=== PATIENT | female | born 1930 | race Caucasian/White ===

== ENCOUNTER 2016-12-18 15:24 | Inpatient (IN) ==
[2016-12-18] MEDS ORDERED: Aspirin 81 MG TAB.CHEW PO ONE (15:37)
--- NOTE | 2016-12-18 15:42 | Emergency Department Note ---
Disposition Clinical Impression: Elevated troponin I level Chest pain Qualifiers: Chest pain type: unspecified Qualified Code(s): R07.9 - Chest pain, unspecified Disposition: Admitted As Inpatient Condition: Fair Referrals: Rodriguez Lawrence MD [Primary Care Provider] - Forms: ED Satisfaction Letter Time of Disposition: 17:24 Chest Pain HPI - General Chief Complaint: ED Chest Pain Stated Complaint: CP Vital Signs Reviewed: Yes Nursing Notes Reviewed: Yes - History of Present Illness HPI Narrative: Patient is an 86-year-old female who presents to [facility] ED with a chief complaint of substernal chest discomfort. Describes her pain as indigestion which started last night. States it came on and then went away. Then it came on again today. Denies any nausea, vomiting, fever or chills. No history of heart problems. Patient was sent over by her primary care physician Dr. Lawrence. EKG was handed to me by her son. Past medical history significant for type 2 diabetes, hypertension, hyperlipidemia. Patient states she has never had a stress test performed. Pt complaint: chest pain Onset (ago): hour(s) Duration: intermittent Onset: during rest Pain Location: substernal Severity: moderate Quality: aching Pain Radiation: none Improves with: nothing Worsens with: nothing Associated symptoms: Denies: nausea, vomiting, dyspnea - Related Data Home Medications Medication Instructions Recorded Confirmed Amlodipine [Norvasc] 5 mg PO DAILY 12/18/16 12/18/16 Gabapentin [Neurontin] 300 mg PO HS 12/18/16 12/18/16 Glimepiride [Amaryl] 4 mg PO DAILY 12/18/16 12/18/16 Insulin Glargine,Hum.rec.anlog 10 unit SQ HS 12/18/16 12/18/16 [Lantus Solostar] LORazepam [Ativan] 0.5 mg PO BID PRN 12/18/16 12/18/16 Lisinopril [Zestril] 20 mg PO DAILY 12/18/16 12/18/16 Loratadine [Claritin] 10 mg PO DAILY 12/18/16 12/18/16 Sertraline [Zoloft] 25 mg PO DAILY 12/18/16 12/18/16 SitaGLIPtin [Januvia] 100 mg PO DAILY 12/18/16 12/18/16 Allergies Allergy/AdvReac Type Severity Reaction Status Date / Time Sulfa (Sulfonamide Allergy Hives Verified 12/18/16 15:26 Antibiotics) All systems ED: reviewed and negative except as stated. Physical Exam - General Limitations: no limitations General appearance: alert, in no apparent distress - Head Head exam: atraumatic, normocephalic, normal inspection - Eye Eye exam: Present: normal appearance, PERRL, EOMI - ENT ENT exam: normal exam - Neck Neck exam: Present: normal inspection, full ROM, trachea midline - Chest Chest inspection: Present: normal inspection, symmetric chest wall rise - Respiratory Respiratory exam: Present: normal lung sounds bilaterally - Cardiovascular Cardiovascular exam: Present: normal rhythm, tachycardia, systolic murmur ( Prominent new blowing systolic murmur) - Abdominal Exam Abdominal exam: Present: soft, Non-Tender. Absent: tenderness, distention, guarding, rebound, rigidity - Extremities Exam Extremities exam: Present: normal inspection, full ROM. Absent: tenderness, pedal edema - Back Exam Back exam: Present: normal inspection, full ROM. Absent: tenderness - Neurological Exam Neurological exam: Present: alert, oriented X3 - Psychiatric Psychiatric exam: Present: normal affect, normal mood - Skin Skin exam: Present: warm, dry, intact, normal color Course Course Narrative: Patient seen and examined. Chest pain described as indigestion. Concerned that on physical exam, patient has a new loud systolic murmur. Cardiac workup initiated. The EKG from the primary care's office seems to show possible ST segment elevation in lead V2. We will go ahead and fax this to the maintenance representative office while we repeat an EKG here. - Consultations Consultation #1: The maintenance representative is going to take the pt to the fish farm laborer but does not want to call the pt a STEMI. Time: 16:00 Vital Signs Temperature 98.9 F 12/18/16 15:33 Pulse Rate 95 12/18/16 15:33 Respiratory Rate 16 12/18/16 15:33 Blood Pressure 127/61 12/18/16 15:33 O2 Sat by Pulse Oximetry 95 12/18/16 15:33 Temperature 98.9 F 12/18/16 15:33 Pulse Rate 95 12/18/16 15:33 Respiratory Rate 14 12/18/16 16:29 Blood Pressure 108/67 12/18/16 16:29 O2 Sat by Pulse Oximetry 95 12/18/16 15:33 Oxygen Delivery Oxygen Delivery Room Air Chest Pain - Medical Records Medical records reviewed: Yes I reviewed the patient's medical records. - Lab Data Lab results reviewed: Yes I reviewed the patient's lab results. - Radiology Data Radiology results reviewed: Yes I reviewed the patient's radiology results. - EKG Data EKG attestation: Yes I reviewed and interpreted this EKG. EKG results narrative: EKG done at 1538 shows normal sinus rhythm with a rate of 95 bpm. There does appear to be possible ST elevation in lead V2. No signs of ST depression. Left axis deviation. Left anterior fascicular block. Right bundle branch block present. Concern for anterior septal infarct. Heart Score - Score History: Highly Suspicious EKG: Non Specific repolarisation Disturbance Age: Greater than 65 Risk Factors: 1-2 risk factors Attestation Statement - Attestation Attestation: I examined this patient and my medical decision-making was reviewed with the ELECTRONIC ORGAN MECHANIC/PA/Advanced Practice Nurse/Resident Physician. I agree with the documented findings, disposition and treatment plan as described except to the extent set forth below. This is an 86-year-old female who was sent over from Dr. Lawrence's office due to a chest pain and indigestion sensation. Patient has never had any cardiac workup. Patient has never had a stress test or heart cath. Patient did have some concerning changes on his EKG. We did send the EKGs over to the maintenance representative and we will send patient to the fish farm laborer but maintenance representative does not want us to call a STEMI at this time.
[2016-12-18] MEDS ORDERED: *HR* Midazolam HCl 2 MG/2 ML VIAL ONE (16:09)
[2016-12-18] MEDS ORDERED: *HR* FentaNYL (PF) 100 MCG/2 ML VIAL ONE (16:09)
[2016-12-18] MEDS ORDERED: Verapamil 5 MG/2 ML VIAL ONE ×2 (16:09→16:54)
[2016-12-18] MEDS ORDERED: Nitroglycerin 1,000 MCG/10 ML VIAL IV ONE (16:11)
--- NOTE | 2016-12-18 16:18 | Pre-Sedation Evaluation ---
Pre-sedation evaluation - Pre-sedation checklist Date of procedure: 12/18/16 Procedure: [facility] Recent Vitals: Last Vital Signs Temp 98.9 F 12/18/16 15:33 Pulse 95 12/18/16 15:33 Resp 16 12/18/16 15:33 BP 127/61 12/18/16 15:33 Pulse Ox 95 12/18/16 15:33 H&P (including ROS) documented in medical record: Yes Previous reaction to sedatives/anesthetics: No Dietary Status: No solid food in preceding 4 hrs and no liquid in preceding 2 hrs Airway Assessment: Patient can open mouth completely, TMJ function normal Dentition: No loose teeth or bridges ASA Classification *see protocol: CLASS II-Mild systemic disease, E-EMERGENCY- Add to any of the above to indicate emergent Plan of Care: Pt appropriate candidate for procedure/moderate/conscious sedation , Risks/benefits of procedure/sedation discussed w/ patient/family, If not NPO; Risk of intake outweiged by necessity to perform procedure
[2016-12-18] MEDS ORDERED: Tirofiban 12.5 MG/250ML 12.5 MG/250 ML BAG ONE (16:44)
[2016-12-18] MEDS ORDERED: *HR* Heparin 10,000 UNIT/10 ML VIAL ONE (16:55)
[2016-12-18] MEDS ORDERED: 0.9 % Sodium Chloride 1,000 ML ONE (16:55)
[2016-12-18] MEDS ORDERED: Heparin 1,000 UNITS/500 mL NS 500 ML ONE (16:55)
[2016-12-18 17:02] LABS: Basophils # 0.1 K/mcL (0.0-0.2); Basophils % 0.3 %; Eosinophils # 0.1 K/mcL (0.0-0.6); Eosinophils % 0.5 %; Hematocrit 37.5 % (35.3-44.9); Immature Granulocytes % 1.4 % (0-4); Lymphocytes # 1.7 K/mcL (0.6-4.6); Lymphocytes % 8.1 %; Mean Corpuscular Hemoglobin 27.3 pg (28.0-33.3); Mean Corpuscular Volume 85.4 fL (83.0-100.0); Mean Platelet Volume 11.7 fL (9.4-12.4); Monocytes # 1.5 K/mcL (0.0-1.3); Monocytes % 6.9 %; Neutrophils # 17.8 K/mcL (1.6-8.9); Platelet Count 263 K/mcL (140-400); Red Blood Count 4.39 M/mcL (3.82-4.97); Segmented Neutrophils % 82.8 %
[2016-12-18 17:07] LABS: INR 1.1
[2016-12-18 17:09] LABS: Activated Partial Thrombo Time 30.4 Seconds (26.0-36.0)
[2016-12-18] MEDS ORDERED: *HR* Ticagrelor 90 MG TABLET ONE (17:09)
[2016-12-18 17:11] LABS: Prothrombin Time 12.2 Seconds (9.4-12.1)
[2016-12-18 17:13] LABS: Calcium 8.5 mg/dL (8.6-10.8); Potassium 4.7 mEq/L (3.5-4.5)
[2016-12-18] MEDS ORDERED: Tirofiban 12.5 MG/250ML 12.5 MG/250 ML BAG IVC SCH (17:15)
--- NOTE | 2016-12-18 17:21 | Cardiology History & Physical ---
Date of Encounter: 12/18/16 Time of Encounter: 17:00 Assessment and Plan (1) Acute [place] Current Visit: Yes Status: Acute EKG concerning for anterior current of injury with ongoing symptoms. Aspirin, brilinta, heparin given. EF assessment will be completed. A/R/B discussed with patient and she is agreeable with proceeding. The assessment and plan as outlined above was discussed with the patient and/or family members who expressed understanding and agreement. All questions were answered. Qualifiers: Myocardial infarction ST status: ST elevation myocardial infarction Involved coronary artery: LAD coronary artery Qualified Code(s): I21.02 - ST elevation (STEMI) myocardial infarction involving left anterior descending coronary artery (2) Diabetes Current Visit: Yes Status: Acute SSI QID FS The assessment and plan as outlined above was discussed with the patient and/or family members who expressed understanding and agreement. All questions were answered. Qualifiers: Diabetes mellitus type: type 2 Diabetes mellitus complication status: with circulatory complication Diabetes mellitus complication detail: with other circulatory complications Diabetes mellitus butcher assistant insulin use: without fdc use Qualified Code(s): E11.59 - Type 2 diabetes mellitus with other circulatory complications (3) CKD stage 3 secondary to diabetes Current Visit: Yes Status: Acute The assessment and plan as outlined above was discussed with the patient and/or family members who expressed understanding and agreement. All questions were answered. History of Present Illness Chief complaint: chest discomfort HPI: Ms. Frank is a 86 year old diabetic female with no previous cardiac history presents with indigestion that started last night and continued today which was moderate intensity. She saw Dr. Lawrence in clinic and EKG was grossly changed from previous. She was diaphoretic with minimal exertion. She presented to ED and was urgently taken to the laborer wrecking and salvaging because of ongoing symptoms and abnormal EKG concerning for anterior current of injury - STEMI. Past Med Surg Social Fam HX - Past Medical History Medical history: diabetes, hypertension Psychiatric history: anxiety, depression - Social History Smoking Status: Never smoker Smokeless Tobacco Status: No Alcohol use: none Drug use: none Medications and Allergies Amlodipine [Norvasc] 5 mg PO DAILY 12/18/16 [History] Gabapentin [Neurontin] 300 mg PO HS 12/18/16 [History] Glimepiride [Amaryl] 4 mg PO DAILY 12/18/16 [History] Insulin Glargine,Hum.rec.anlog [Lantus Solostar] 10 unit SQ HS 12/18/16 [History ] LORazepam [Ativan] 0.5 mg PO BID PRN 12/18/16 [History] Lisinopril [Zestril] 20 mg PO DAILY 12/18/16 [History] Loratadine [Claritin] 10 mg PO DAILY 12/18/16 [History] Sertraline [Zoloft] 25 mg PO DAILY 12/18/16 [History] SitaGLIPtin [Januvia] 100 mg PO DAILY 12/18/16 [History] Allergies Sulfa (Sulfonamide Antibiotics) Allergy (Verified 12/18/16 15:26) Hives All Systems Review: A 10-system review of systems was performed and is negative for pertinent findings except as documented above in the HPI. - Constitutional Constitutional: no chills, no fever(s) - EENT Eyes: no blurred vision, no loss of vision Nose, mouth and throat: no bleeding gums, no epistaxis - Cardiovascular Cardiovascular: chest pain at rest, chest pain with exertion, diaphoresis, dyspnea at rest - Respiratory Respiratory: dyspnea, no hemoptysis - Gastrointestinal Gastrointestinal: no coffee ground emesis, no hematochezia - Genitourinary Genitourinary: no dysuria, no hematuria - Musculoskeletal Musculoskeletal: no arthralgias, no myalgias - Integumentary Integumentary: no erythema, no rash - Neurological Neurological: no abnormal speech, no focal weakness - Psychiatric Psychiatric: no anxiety, no depression - Hematological/Lymphatic Hematologic/Lymphatic: no easy bleeding, no easy bruising Physical Examination Vital Signs, Last 4 Hours Temp Pulse Resp BP Pulse Ox 12/18/16 16:29 14 108/67 12/18/16 15:33 98.9 F 95 16 127/61 95 General: Conversant, Other (mild distress) Neck: No JVD Cardiac: Reg Rate and Rhythm Lungs: Normal Breath Sounds Neuro: Alert and responsive Abdomen: Soft Skin: No rashes noted on visualized skin Musculoskeletal: No Chest Wall Tenderness Extremities: No Cyanosis Results 12/18/16 16:41 12/18/16 16:41 Lab Results 12/18/16 12/18/16 12/18/16 16:41 16:41 16:41 WBC 21.5 H Hgb 12.0 Hct 37.5 Plt Count 263 INR 1.1 APTT 30.4 Sodium 134 L Potassium 4.7 H Chloride 105 Carbon Dioxide 17 L BUN 34 H Creatinine 1.49 H Glucose 453 H Calcium 8.5 L - EKG Interpretation EKG results cardiology: personally reviewed, sinus rhythm (anterior current of injury)
[2016-12-18] MEDS ORDERED: D5% in Water 1,000 ML IVC PRN (17:24)
[2016-12-18] MEDS ORDERED: Dextrose Gel 15 GM PO PRN ×2 (17:24)
[2016-12-18] MEDS ORDERED: *HR* Dextrose 50 % in Water (Syg) 50 ML SYRINGE IVP PRN (17:24)
--- NOTE | 2016-12-18 17:53 | Invasive Diagnostic Lab Proc ---
Name: Funmilayo Frank Date of Study: 12/18/2016 Date: 1930 Ht: 68.0in Medical Record#: [id number] Age: 86 Wt: 200.40lb Gender: Female BSA: 2.05 Order #: [id number] BMI: 30.48 Physicians Procedure Physician: Paul Birch MD, [facility] Referring MD: Rodriguez Lawrence MD Referring MD: Staff Name Position Time In Tamiko Guadarrama RT (R) Monitor 04:31 PM IvorySuki RT Scrub 04:31 PM Olga Lidia Maurer RN Transformer Builder 04:31 PM Paz Lo RN Transformer Builder 04:31 PM Indications Indication Unstable Angina Procedures Performed Procedure L HRT ARTERY/VENTRICLE ANGIO PRQ CARD BM STENT W/ANGIO 1 VSL PRQ CARD REVASC ND 1 VSL Pre-Procedure Checklist Informed consent is complete signed and on chart. H\\T\\P is on chart. ID band is on and ID verified with patient. Patient NPO for procedure The procedure was described for the patient and questions were answered. Blood Pressure: 110/67 ECG is on chart. Rhythm: NSR Plan of Care Patient will tolerate the procedure without complications. Adequate level of comfort will be maintained. Hemodynamics will remain stable Patient will recover from procedure without complications. Respiratory function will be maintained. Cardiac rhythm will remain stable. Patient temperature will be maintained. Patient and/or family have verbalized understanding of the procedure. Patient Education Intravenous Access Time IV Size Location DC'd Fluid/Drip Rate Units RN 04:37 PM 20g 1 1/4" Patent On Arrival Lt Antecubital 0.9NaCl 25 ml 04:37 PM 18g 1 1/4" Peripheral-Lock On Arrival Allergies Sulfa (Sulfonamide Antibiotics) Vital Signs Time BP (mmHg) HR (bpm) O2 Sat. RR (bpm) LOC / % 5 = Fully awake and oriented or at pre-proc level 04:33 PM / % 4 = Oriented but drowsy 04:36 PM 110 / 67 97 93 % 16 04:31 PM 110 / 67 97 93 % 04:36 PM 107 / 65 94 90 % 04:41 PM 99 / 52 94 89 % 04:46 PM 96 / 58 91 90 % 04:51 PM 96 / 61 88 97 % 36 04:56 PM 99 / 56 86 94 % 23 05:01 PM 100 / 63 87 96 % 18 05:06 PM 98 / 62 89 94 % 27 05:11 PM 98 / 58 % 05:34 PM 98 / 50 90 96 % 18 5 = Fully awake and oriented or at pre-proc level Procedural Medications Time Medication Dose Units Method Given By 04:32 PM Oxygen 2 L/min nasal cannula Olga Lidia Maurer RN 04:33 PM Versed 1 mg Intravenous Paz Lo RN 04:33 PM Fentanyl 25 mcg Intravenous Paz Lo RN 04:36 PM Oxygen 4 L/min nasal cannula Paz Lo RN 04:38 PM Lidocaine 2% 0.5 ml Subcutaneous Paul Birch MD, FACC 04:39 PM Oxygen 6 L/min simple face mask Olga Lidia Maurer RN 04:39 PM Heparin 4000 units Nitroglycerin 200 mcg Verapamil 2.5 mg Intraarterial Paul Birch MD, FACC 04:43 PM Oxygen 12 L/min simple face mask Paz Lo RN 04:48 PM Aggrastat Bolus: 46 ml Intravenous Paul Birch MD 04:48 PM Aggrastat 5mg/100ml 16.5 ml Intravenous Olga Lidia Maurer RN 04:53 PM Nitroglycerin 100 mcg Intracoronary Paul Birch MD 04:57 PM Nitroglycerin 50 mcg Intracoronary Paul Birch MD 05:06 PM Brillinta 180 mg Orally Olga Lidia Maurer RN 05:06 PM Aggrastat 5mg/100ml 8.25 ml Intravenous Olga Lidia Maurer RN Arelis Score Preprocedure Postprocedure Activity 2- Moves 4 extremities sustained head lift Activity 2- Moves 4 extremities sustained head lift Circulation 2- SBP +/= 20 points of pre-anesthetic level Circulation 2- SBP +/= 20 points of pre-anesthetic level Consciousness 2- Awake and alert oriented x 3 Consciousness 2- Awake and alert oriented x 3 O2 Saturation 2- Able to maintain O2 satruation of 92% on room air O2 Saturation 2- Able to maintain O2 satruation of 92% on room air Respiratory 2- Able to deep breathe and cough well Respiratory 2- Able to deep breathe and cough well Total Score 10 Total Score 10 Contrast Agent: Isovue Diagnostic Contrast: 81 ml Total Contrast: 81 ml Fluoro Dose: 572 mGy Procedure Log Time Note Enter By 04:30 PM CathStat 04:30 PM Vitals capture started with the following parameters, Patient=Adult, Interval=5 min, Initial Vqtfhtqy=181 mmHg, Deflation Rate=5 mmHg, Cuff placed on Left Arm 04:31 PM Pt arrived to laboratory miller 2 at 16:31 [email or web address] 04:31 PM Tamiko Guadarrama RT (R) Position: Monitor Time in: 16:31 [email or web address] 04:31 PM HR=97 bpm, ELUU=395/67 mmhg, SpO2=93.0 % 04:31 PM Suki Dodson RT Position: Scrub Time in: 16:31 [email or web address] 04:31 PM Olga Lidia Maurer RN Position: Transformer Builder Time in: 16:31 [email or web address] 04:31 PM Paz Lo RN Position: Transformer Builder Time in: 16:31 [email or web address] 04:31 PM Recorded ECG: HR=93 Condition=Condition 1 04:32 PM Patient charges- Angio tray pack, Navilyst 3mm J, Pulse Oximetry and ACIST tubing and transducer [email or web address] 04:32 PM Case Delayed No [email or web address] 04:32 PM Hair removed from procedure site in holding area using clippers. Right wrist prepped with Chloraprep by Tamiko Guadarrama RT (R), safety strap applied then patient was draped. Skin intact. [email or web address] 04:32 PM Hair removed from procedure site in holding area using clippers. Right groin prepped with Chloraprep by Tamiko Guadarrama RT (R), safety strap applied then patient was draped. Skin lacerated. [email or web address] 04:32 PM Physician arrived 16:32 [email or web address] 04:32 PM Meet and kimberly completed y3 04:32 PM Sign in performed according to hospital policy. [email or web address] 04:32 PM Procedure start 16:32 [email or web address] 04:32 PM Time: 16:32 Oxygen on at 2 L/min per nasal cannula by Olga Lidia Maurer RN [email or web address] 04:33 PM Time: 16:33 Versed 1 mg Intravenous Given by Paz Lo RN [email or web address] 04:33 PM Time: 16:33 Fentanyl 25 mcg Intravenous Given by Paz Lo RN [email or web address] 04:33 PM Time: 16:33 Patient comfortable and pain free: Yes [email or web address] 04:33 PM Time: 16:33LOC: 4 = Oriented but drowsy [email or web address] 04:35 PM Pressure channel 1 zeroed. 04:36 PM HR=94 bpm, UXLZ=908/65 mmhg, SpO2=90.0 %, Comment=NSR 04:36 PM Time: 16:36 Oxygen on at 4 L/min per nasal cannula by Paz Lo RN [email or web address] 04:38 PM Time out performed according to hospital policy [email or web address] 04:38 PM Time: 16:38 0.5 ml Lidocaine 2% to right radial Subcutaneous Given by Paul Birch MD, [facility] [email or web address] 04:39 PM Time: 16:39 Oxygen on at 6 L/min per simple face mask by Olga Lidia Maurer RN [email or web address] 04:39 PM Access obtained by percutaneous puncture. 6Fr 10cm Terumo [place] sheath placed in right Radial artery. [id number] [email or web address] 04:39 PM Time: 16:39 Patient given 4,000 units Heparin, 200 mcg Nitroglycerin, and 2.5 mg Verapamil Intraarterial by Paul Birch MD, [email or web address] 04:39 PM 0.035 260cm Navilyst 3mmJ wire [id number] [email or web address] 04:40 PM 5Fr TIG catheter inserted over the wire [employer] [email or web address] 04:40 PM Pressure channel 1 zeroed. 04:41 PM Recorded Pressure: Ao, HR=95, Condition=Condition 1 (Aorta) Ao 89/68/78 04:41 PM HR=94 bpm, NIBP=99/52 mmhg, SpO2=89.0 %, Comment=NSR 04:41 PM LCA angiography performed in multiple views. [email or web address] 04:42 PM Lesion found in Proximal Circumflex. Pre Stenosis: 40 Pre BALA Flow: 2: Partial Flow/Perfusion (> 1 but < 3) [email or web address] 04:42 PM Lesion found in 1st Marginal. Pre Stenosis: 60 Pre BALA Flow: [email or web address] 04:42 PM RCA angiography performed in multiple views. [email or web address] 04:42 PM Recorded Pressure: Ao, HR=90, Condition=Condition 1 (Aorta) Ao 94/74/84 04:43 PM Catheter removed [email or web address] 04:43 PM Time: 16:43 Oxygen on at 12 L/min per simple face mask by Paz Lo RN [email or web address] 04:43 PM Lesion found in Mid LAD. Pre Stenosis: 90 Pre BALA Flow: 2: Partial Flow/Perfusion (> 1 but < 3) [email or web address] 04:43 PM .014 PT Graphix 182cm guide wire across target lesion- successful. reused? No [email or web address] 04:43 PM Inflation device was opened. [email or web address] 04:44 PM 6Fr RBL 3.5 Convey guide catheter was used to cannulate the PCI vessel successfully. reused? No [email or web address] 04:45 PM 2.0 mm x 12 mm Emerge Monorail balloon across target lesion- successful. reused? No [email or web address] 04:46 PM HR=91 bpm, NIBP=96/58 mmhg, SpO2=90.0 %, Comment=NSR 04:48 PM Time: 16:48 Aggrastat Bolus: 46 ml Intravenous Given by Paul Birch MD Carrero pump [email or web address] 04:48 PM Time: 16:48 Aggrastat 5mg/100ml 16.5 ml Intravenous Given by Olga Lidia Maurer RN Carrero pump [email or web address] 04:50 PM Recorded Pressure: Ao, HR=90, Condition=Condition 1 (Aorta) Ao 77/56/65 04:51 PM HR=88 bpm, NIBP=96/61 mmhg, SpO2=97.0 %, Resp=36 B/min, Comment=NSR 04:51 PM Balloon inflated @ 14 jerzy for 14 seconds [email or web address] 04:53 PM Balloon inflated @ 6 jerzy for 8 seconds [email or web address] 04:53 PM Balloon catheter removed intact. [email or web address] 04:53 PM Time: 16:53 Nitroglycerin 100 mcg Intracoronary Given by Paul Birch MD [email or web address] 04:55 PM 3.0mm x 16mm Synergy drug-eluting stent across target lesion- successful Lot #[id number] [email or web address] 04:56 PM Stent deployed @ 12 jerzy for 16 seconds [email or web address] 04:56 PM HR=86 bpm, NIBP=99/56 mmhg, SpO2=94.0 %, Resp=23 B/min, Comment=NSR 04:57 PM Time: 16:57 Nitroglycerin 50 mcg Intracoronary Given by Paul Birch MD [email or web address] 04:58 PM Stent delivery system removed intact. [email or web address] 05:01 PM HR=87 bpm, EZLR=338/63 mmhg, SpO2=96.0 %, Resp=18 B/min, Comment=NSR 05:02 PM Guide wire removed intact. [email or web address] 05:02 PM Guide catheter removed intact. [email or web address] 05:03 PM 5Fr Pigtail catheter inserted over the wire [employer] [email or web address] 05:03 PM Catheter selectively placed in left ventricle [email or web address] 05:03 PM Bolus angiogram of left Ventricle complete: 8 ml/sec for a total of 24 mls [email or web address] 05:04 PM Recorded Pressure: LV, HR=87, Condition=Condition 1 (Left Ventricle) LV 95/30/34 05:04 PM Recorded Pressure: LV, Ao, HR=85, Condition=Condition 1 (Left Ventricle) LV 91/22/32, (Aorta) Ao ?/?/? 05:05 PM Catheter removed [email or web address] 05:05 PM Coronary Dominance: right [email or web address] 05:05 PM Procedure completed at 17:05 [email or web address] 05:06 PM Sign out completed: Radiation Dose 572.13 mGy Fluoro Time: 7.6 Isovue 370 - 200ml contrast 80.9 ml given by Paul Birch MD, [facility]. Complications: NoneCardiac Rehab Consult needed: YesConfirmed administered medications: Yes [email or web address] 05:06 PM HR=89 bpm, NIBP=98/62 mmhg, SpO2=94.0 %, Resp=27 B/min, Comment=NSR 05:06 PM Time: 17:06 Brillinta 180 mg Orally Given by Olga Lidia Maurer RN [email or web address] 05:07 PM Time: 17:06 Aggrastat 5mg/100ml 8.25 ml Intravenous Given by Olga Lidia Maurer RN Carrero pump [email or web address] 05:09 PM Isovue 370 - 200ml,1 Bottle(s) used. [email or web address] 05:09 PM Arterial sheath pulled, Vasc Band closure device used and was Successful S/N. [email or web address] 05:09 PM 10 ml air in Vasc Band. [email or web address] 05:09 PM Post Blood Pressure 98/62 [email or web address] 05:09 PM 17:09 Post Pulses Rt Radial 2+ [email or web address] 05:09 PM Information taught Cardiac Cath and PCI [email or web address] 05:10 PM Education needs Procedure, Plan of Care, and Disease Process [email or web address] 05:10 PM Learning barriers :None [email or web address] 05:10 PM Education Methods Verbal [email or web address] 05:10 PM Education evaluation Able to repeat information [email or web address] 05:10 PM Site status No bleeding/hematoma - Rt Wrist as reported by Suki Dodson RT at 17:10 [email or web address] 05:10 PM Delay to floor No [email or web address] 05:10 PM Family placed in consult room. [email or web address] 05:10 PM Fluoro Time: 7.6 [email or web address] 05:10 PM Isovue 370 - 200ml contrast 80.9 ml given by Paul Birch MD, [facility]. [email or web address] 05:11 PM NIBP=98/58 mmhg, Comment=NSR 05:34 PM patient arrive to catheter builder HR1 [email or web address] 05:45 PM Report given to Stephanie LOPEZ Pt taken to ICU Room #6. 17:45 [email or web address] 05:46 PM Patient out of room: 17:46 [email or web address] Complications Complication None Hemodynamics Pressures Site Systolic/A Wave Diastolic/V Wave Mean AO 89 68 78 AO 94 74 84 AO 77 56 65 LV 95 30 34 LV 91 22 32 AO Post Procedure Information Blood Pressure: 98/62 mmHg Post procedural instructions were given Closure Device Time Device Success/Fail 12/18/2016 5:10:00 PM Manual Compression Yes Site Checks Time Location Status Staff Sheath In? Note 05:10 PM Rt Wrist No bleeding/hematoma Suki Dodson RT 05:34 PM Rt Wrist No bleeding/ No Hematoma Veda Alcantara RN vasc band in place Pulses Time Site Pre-Procedure Post-Procedure Note Bilateral DP \\T\\ PT 1+ Bilateral radial 2+ 5:09:00 PM Rt Radial 2+ 12/18/2016 5:34:00 PM Rt Radial 2+ Updated by Tamiko Guadarrama, RT(R) on 12/18/2016 5:47:26 PM electronically signed on 12/18/2016 5:48:05 PM with status of Final
[2016-12-18] MEDS: 0.9 % Sodium Chloride 1,000 ML IVC SCH (18:43)
[2016-12-18] MEDS: *HR* Ticagrelor 90 MG TABLET PO SCH (20:43)
[2016-12-18] MEDS: Insulin LISPRO 300 UNITS/3 ML VIAL SQ SCH (20:54)
[2016-12-19] MEDS: *HR* Morphine 2 MG/ML SYRINGE IVP PRN ×2 (00:23→05:56)
[2016-12-19 04:22] LABS: Basophils % 0.2 %; Hematocrit 36.9 % (35.3-44.9); Hemoglobin 11.9 g/dL (11.5-15.4); Immature Granulocytes % 0.8 % (0-4); Lymphocytes # 1.5 K/mcL (0.6-4.6); Lymphocytes % 7.1 %; Mean Corpuscular HGB Conc 32.2 g/dL (31.6-35.5); Mean Corpuscular Hemoglobin 27.7 pg (28.0-33.3); Mean Corpuscular Volume 85.8 fL (83.0-100.0); Mean Platelet Volume 11.6 fL (9.4-12.4); Monocytes # 1.8 K/mcL (0.0-1.3); Monocytes % 8.3 %; Neutrophils # 18.1 K/mcL (1.6-8.9); Platelet Count 243 K/mcL (140-400); Red Cell Distribution Width 14.4 % (11.5-14.5); Segmented Neutrophils % 83.6 %
[2016-12-19 04:35] LABS: Potassium 4.8 mEq/L (3.5-4.5)
[2016-12-19 04:36] LABS: Calcium 8.5 mg/dL (8.6-10.8)
[2016-12-19] MEDS: Insulin LISPRO 300 UNITS/3 ML VIAL SQ SCH ×4 (08:29→21:00)
[2016-12-19] MEDS ORDERED: Aspirin 81 MG TAB.CHEW PO SCH (09:00)
--- NOTE | 2016-12-19 09:07 | ECHO - Doppler Report ---
Echocardiogram Name: Funmilayo Frank Date of Study: 12/19/2016 Date: 1930 Ht: 68.0 in Medical Record#: [id number] Age: 86 Wt: 202.0 lb Gender: Female BSA: 2.05 Order #: [id number] Location: [facility] Room #: [facility] Reading Physician: Chao Barkley MD, [facility] Certified Corporate Travel Executive: Cintia Hart RVT Ordering Physician: Paul Birch MD, [facility] Primary Physician: Rodriguez Lawrence MD Indications: ACS Impressions: LVEF 55%. There is akinesis of the apical septum, apical inferior wall, and apex. There is a ventricular septal defect (VSD) involving the apical septum with left to right shunting. Normal right ventricular size. There is severe hypokinesis to akinesis of the RV apex. The basal-mid RV demonstrates normal contractility. No significant valvular dysfunction. Mild pulmonary hypertension. Estimated RVSP = [address] surgery consultation. Findings were discussed with the inpatient cardiology service. Left Ventricular Wall Motion: Rest Echo Findings The apex, apical inferior and apical septal lin were akinetic. All other wall segments showed normal motion. Findings: Study Quality * Technically adequate exam. ECG Findings * Normal sinus rhythm. Left Ventricle * LVEF 55%. There is akinesis of the apical septum, apical inferior wall, and apex. * There is a ventricular septal defect (VSD) involving the apical septum with left to right shunting. * Normal LV chamber size and wall thickness. * Indeterminate diastolic function. Right Ventricle * Normal right ventricular size. There is severe hypokinesis to akinesis of the RV apex. The basal-mid RV demonstrates normal contractility. Left Atrium * Normal left atrial size. Right Atrium * Normal right atrial size. Aorta * Normally sized aortic root. Pericardium * There is no pericardial effusion present. IVC * Normal IVC dimensions and inspiratory collapse. Aortic Valve * Trileaflet aortic valve. * Mildly sclerotic aortic valve leaflets. * No aortic stenosis. * No aortic regurgitation. Mitral Valve * Mildly calcified mitral valve leaflets. * No mitral stenosis. * Trace mitral regurgitation. Tricuspid Valve * Normal tricuspid valve structure. * No tricuspid stenosis. * Trace tricuspid regurgitation. * Mild pulmonary hypertension. Estimated RVSP = 36 mmHg. Pulmonic Valve * Pulmonic valve not well visualized. * No pulmonic stenosis. * Trace pulmonic regurgitation. History Hypertension History of CAD/PTCA Myocardial Infarction Measurements: BP: 95/ 59 2D Normal Values RVIDd: 2.70 cm IVSd: 1.00 cm 0.6 - 1.0 cm LVIDd: 4.60 cm 3.7 - 5.6 cm LVPWd: 1.00 cm 0.6 - 1.1 cm LVIDs: 2.50 cm 1.5 - 3.6 cm AO: 3.20 cm < 4.0 cm %FS: 45.70 cm >25 % LA volume: 41 Tricuspid Valve TV Regurg Peak Grad: 33.00mmHg TV Regurg Peak Marcos: 2.90m/sec Updated by Chao Barkley MD, [facility] on 12/19/2016 9:00:27 AM electronically signed on 12/19/2016 9:01:47 AM with status of Final Wall Motion [place]: 1=Normal, 2=Hypokinesis, 3=Akinesis, 4=Dyskinesis, 5=Aneurysmal, 6=Hyperkinetic, X=Not Visualized (Blank)=Missing
[2016-12-19] MEDS: *HR* Ticagrelor 90 MG TABLET PO SCH ×2 (09:37→21:00)
--- NOTE | 2016-12-19 10:12 | Discharge Summary ---
Date of Encounter: 12/19/16 Time of Encounter: 10:12 - Discharge Diagnosis (1) STEMI (ST elevation myocardial infarction) Priority: Primary Status: Acute Comments: S/P STEMI yesterday evening taken urgently to chemical laboratory tester. [facility] with PCI to proximal LAD. Troponin 4.08. Recommend DAPT (ASA and Brilinta) uninterrupted x 1 year. Pt verbalizes understanding. Continue Statin. No BB currently due to hypotension. Pt denies chest pain or dyspnea overnight. Right radial and femoral attempted access sites healing well--no bleeding, hematoma or ecchymosis noted. Echo EF 55% with akinesis of apical septum, apical inferior wall and apex. VSD involving apical septum with left to right shunting. Severe hypokinesis to akinesis of RV apex. No significant valvular dysfunction, mild pulmonary htn est RVSP 36mmHg. Recommend transfer to [facility] for CT surgery evaluation of infarct related VSD. Discharging to tertiary facility for further care. Follow-up with [facility] within 1 week of hospital discharge. Qualifiers: Involved coronary artery: LAD coronary artery Qualified Code(s): I21.02 - ST elevation (STEMI) myocardial infarction involving left anterior descending coronary artery (2) VSD (ventricular septal defect) Priority: Primary Status: Acute Comments: Echo showed VSD involving apical septum with left to right shunting. Pt currently stable. Recommend transfer to [facility] for CT surgery evaluation of infarct related VSD, as condition can cause pt to deteriorate quickly. Discussed with [facility]--will be admitted to cardiology service with CT surgery consult. Discs of [facility] and echo to be sent with pt. (3) Diabetes Priority: Secondary Status: Chronic Comments: Sliding scale while inpt. Qualifiers: Diabetes mellitus type: type 2 Diabetes mellitus complication status: with circulatory complication Diabetes mellitus complication detail: with other circulatory complications Diabetes mellitus ferry terminal agent insulin use: without ferry terminal agent use Qualified Code(s): E11.59 - Type 2 diabetes mellitus with other circulatory complications (4) CKD stage 3 secondary to diabetes Priority: Secondary Status: Chronic Comments: Renal function mildly worse today--creatinine 1.66. IV hydration. Continue to monitor. Pt is not on any nephrotoxic drugs. - Discharge Medications Home Medications: Gabapentin [Neurontin] 300 mg PO HS 12/18/16 [History] LORazepam [Ativan] 0.5 mg PO BID PRN 12/18/16 [History] Loratadine [Claritin] 10 mg PO DAILY 12/18/16 [History] Sertraline [Zoloft] 25 mg PO DAILY 12/18/16 [History] Acetaminophen [Tylenol] 500 mg PO Q6HR PRN #0 tablet 12/19/16 [Rx] Aspirin 81 mg PO DAILY tab.chew 12/19/16 [Rx] Dextrose 50 % in Water (Syg) [Dextrose 50% (Syg)] 25 ml IVP AD PRN #0 syringe [Rx] Dextrose Gel [Gluctose] 15 gm PO ONCE PRN #0 gel..gram. 12/19/16 [Rx] Dextrose Gel [Gluctose] 30 gm PO ONCE PRN #0 gel..gram. 12/19/16 [Rx] Glucagon, Human Recombinant [Glucagen] 1 mg IM ONCE PRN #0 vial 12/19/16 [Rx] Heparin 5,000 unit SQ Q12HCO vial 12/19/16 [Rx] Insulin LISPRO [HumaLOG] 0 units SQ HS vial 12/19/16 [Rx] Insulin LISPRO [HumaLOG] 0 units SQ TIDAC vial 12/19/16 [Rx] Morphine [Morphine Sulfate] 2 mg IVP Q3H PRN #0 syringe 12/19/16 [Rx] Rosuvastatin [Crestor] 40 mg PO HS tablet 12/19/16 [Rx] Ticagrelor [Brilinta] 90 mg PO BID tablet 12/19/16 [Rx] Allergies/Adverse Reactions: Allergies Sulfa (Sulfonamide Antibiotics) Allergy (Verified 12/18/16 15:26) Hives Date of admission: 12/18/16 19:32 Primary care physician: Rodriguez Lawrence MD Discharging clinician: Erlin Lozano Anticipated date of discharge: 12/19/16 - Patient Status Disposition: Transfer Critical Access Hosp Condition: Fair Functional capacity at discharge: independent ambulation Overall status at discharge: patient is not back to baseline - Discharge Instructions Follow Up With: Rodriguez Lawrence MD [Primary Care Provider] - Additional Instructions: RISK FACTORS: STOP SMOKING: If you smoke, STOP. Smoking or tobacco use significantly increases your risk of heart disease because nicotine causes the arteries to narrow or constrict. It also causes fats to stick to the artery. Your chances of having a heart attack are greatly increased if you continue to smoke. For more information, call the education line for smoking cessation 2-991-CEAOGXJ EAT A LOW FAT/CHOLESTEROL/SODIUM DIET: This diet may help reduce your chances of having a heart attack. LIFTING: With affected extremity: Avoid bending, pushing off and lifting more than 2 pounds for 24 hours The following 48 hours, avoid lifting anything more than 5 pounds Avoid strenuous activity or repetitive motions ACTIVITY: You may walk or climb stairs as tolerated You can resume sexual activity as tolerated In general, you are encouraged to engage in a minimum of 30 minutes or more of moderate intensity physical activity, such as brisk walking, daily or at least 3 -4 times weekly BATHING Do not submerge the site into water (bath tub, hot tub, swimming pool, dishes) for 1 week. This can be a source for infection into the blood stream. You may shower after 24 hours SITE CARE: After 24 hours, you may remove the dressing and leave the site open to air. Keep the site clean and dry. Clean gently and pat dry. You can expect bruising and tenderness that gradually resolve within a week or two. Return to work as instructed per your physician Resume driving as instructed per physician Keep all scheduled follow up appointments Resume medications as instructed IMPORTANT: If prescribed a Platelet Aggregation Inhibitor such as, Plavix, Brilinta or Effient: Duration of therapy is minimum one year These medications are often used in combination with Aspirin in prevention of future heart attacks Never discontinue unless consult with your Post Commander STROKE (CVA) Risk factors for a stroke are: Age, cigarette smoking, diabetes, excessive alcohol consumption, family history, high blood pressure, overweight, physical inactivity, prior stroke, heart attack, diagnosis of carotid artery stenosis or other artery disease. Warning signs: Sudden numbness or weakness of the face, arm or leg; especially on one side of the body, sudden confusion, trouble speaking or understanding, sudden trouble seeing in one or both eyes, sudden trouble walking, dizziness, loss of balance or coordination, sudden severe headache with no cause. Call 911 or go to the Emergency Room. CONGESTIVE HEART FAILURE: If you have been diagnosed with Congestive Heart Failure (CHF) and your symptoms return, make an appointment with your physician Weigh yourself daily. Notify your physician if you have a weight gain of two or more pounds in one day or five or more pounds in one week. If you experience any difficulty breathing, please call 911 BLEEDING: Although the risk of bleeding is minimal, it can happen. If you have any bleeding from the site, apply firm pressure above the puncture site for 10-15 minutes. If the bleeding does not stop, continue manual pressure and call 911 Contact [facility] ( ) if: You develop a fever greater than 101 degrees Fahrenheit Your site becomes reddened or has any drainage You have an increase in pain or burning at the site or if a large knot forms at the site. If you experience chest pain, shortness of breath, dizziness, or extreme tiredness, stop the activity and rest. Please notify [facility] office if you experience any of these symptoms and they are not relieved by rest please call 911! - Diet and Activity Activity: increase activity as tolerated Diet: diabetic diet, low fat, low cholesterol - Hospital Course Hospital course: Ms. Frank is a 86 year old female with PMH diabetes, HTN, CKD stage 3 that presented with chest pain, found to have STEMI on EKG yesterday evening taken urgently to chemical laboratory tester. [facility] with PCI to proximal LAD. Troponin 4.08. Recommend DAPT (ASA and Brilinta) uninterrupted x 1 year. Pt verbalizes understanding. Continue Statin. No BB currently due to hypotension. Pt denies chest pain or dyspnea overnight. Right radial and femoral attempted access sites healing well- -no bleeding, hematoma or ecchymosis noted. Echo EF 55% with akinesis of apical septum, apical inferior wall and apex. VSD involving apical septum with left to right shunting. Severe hypokinesis to akinesis of RV apex. No significant valvular dysfunction, mild pulmonary htn est RVSP 36mmHg. Recommend transfer to [facility] for CT surgery evaluation of infarct related VSD, as there is risk of pt deteriorating quickly. Discussed with [facility]--will be admitted to cardiology service with consult to CT surgery. Discharging to tertiary facility ([facility]) for further care. Follow-up with [facility] within 1 week of hospital discharge. - Time Spent with Patient Total time spent providing and/or coordinating discharge services: Greater than 30 minutes Physical Examination Vital Signs, Last 4 Hours Temp Pulse Resp BP Pulse Ox 12/19/16 09:00 92 22 108/87 95 12/19/16 08:27 97.8 F 12/19/16 08:00 97.8 F 93 20 89/53 93 L Vital Signs Temp Pulse Resp BP Pulse Ox 12/19/16 10:00 88 20 104/58 94 L 12/19/16 09:00 92 22 108/87 95 12/19/16 08:27 97.8 F 12/19/16 08:00 97.8 F 93 20 89/53 93 L 12/19/16 06:00 85 25 95/59 93 L 12/19/16 05:00 83 22 87/56 94 L 12/19/16 04:00 98.0 F 87 29 172/92 96 12/19/16 03:00 84 21 95 12/19/16 02:00 85 28 84/50 95 12/19/16 01:00 85 20 85/50 95 12/19/16 00:36 98.4 F 12/19/16 00:00 84 25 88/53 95 12/18/16 23:00 83 16 78/48 97 12/18/16 22:00 88 24 92/53 95 12/18/16 21:00 85 16 92/57 96 12/18/16 20:00 88 23 92/53 95 12/18/16 19:00 90 21 95/61 94 L 12/18/16 18:34 87 17 93/59 96 12/18/16 18:10 94 L 12/18/16 18:05 97.6 F 89 26 94/55 94 L 12/18/16 16:29 14 108/67 12/18/16 15:33 98.9 F 95 16 127/61 95 Intake and Output 12/18/16 12/19/16 12/19/16 23:59 07:59 15:59 Intake Total 100 / 100 240 / 240 Output Total 350 / 350 Balance -250 / -250 240 / 240 Intake: Oral 100 / 100 240 / 240 Output: Urine 350 / 350 Other: Meal Breakfast Percent of Meal Consumed 50% Weight 91.626 kg Blood Glucose* 267 Patient Weight 12/19/16 23:59 Weight 91.626 kg General: Conversant, No Apparent Distress HEENT: Atraumatic, Normocephaly, Mucus Membranes Moist Neck: No JVD, Normal carotid pulses Cardiac: Reg Rate and Rhythm, Normal S1 and S2, Other (murmur heard throughout systole and diastole) Lungs: Normal Breath Sounds, No Wheeze, Rales, Rhonchi Neuro: Alert and responsive, No focal deficits noted Abdomen: Soft, Non-Tender Skin: Other (right radial and femoral access sites healing well--no bleeding, hematoma or ecchymosis noted) Musculoskeletal: No Chest Wall Tenderness Extremities: No Clubbing, No Cyanosis, No Edema, Normal Pulses
[2016-12-19] MEDS: 0.9 % Sodium Chloride 1,000 ML IVC SCH (14:08)
[2016-12-19] MEDS ORDERED: *HR* Heparin 5,000 UNIT/ML VIAL SQ SCH (18:00)
[2016-12-19 21:36] VITALS: BP 91/52
--- NOTE | 2016-12-20 08:00 | Electrocardiograph Report ---
[address] [place] [address] Test Date: 2016-12-18 Pat Name: Funmilayo Frank Department: 103 Room: 06 Gender: F Interactive Media Project Manager: : 1930 Requested By: Luzma Powers Order Number: [id number] Reading MD: Paul Birch MD Measurements Intervals [place] Rate: 95 P: 67 TN: 158 QRS: -62 QRSD: 162 T: 74 QT: 391 QTc: 444 Interpretive Statements SINUS RHYTHM RIGHT BUNDLE BRANCH BLOCK LEFT ANTERIOR FASCICULAR BLOCK LEFT VENTRICULAR HYPERTROPHY AND ST-T CHANGE ANTEROSEPTAL MYOCARDIAL INFARCTION, OF INDETERMINATE AGE Electronically Signed On 12-20-2016 7:58:17 EDT by Paul Birch MD
--- NOTE | 2016-12-20 08:09 | Electrocardiograph Report ---
[place] [address] Test Date: 2016-12-18 Pat Name: Funmilayo Frank Department: 109 Room: 06 Gender: F Client Associate: JESSY : 1930 Requested By: Paul Birch Order Number: [id number] Reading MD: Paul Birch MD Measurements Intervals [place] Rate: 91 P: 55 MD: 160 QRS: -62 QRSD: 162 T: 55 QT: 397 QTc: 445 Interpretive Statements SINUS RHYTHM RIGHT BUNDLE BRANCH BLOCK LEFT ANTERIOR FASCICULAR BLOCK Poor R wave progression Electronically Signed On 12-20-2016 8:07:40 EDT by Paul Birch MD
--- NOTE | 2016-12-21 14:54 | Invasive Diagnostic Lab ---
Name: Funmilayo Frank Date of Study: 12/18/2016 Date: 1930 Ht: 172.7 cm /68.0 in Medical Record#: [id number] Age: 86 Wt: 90.9 kg / 200.40 lb Account/Order#: [id number] Gender: Female BSA: 2.05 Order #: [id number] Fluoro Dose: 572 mGy BMI: 30.48 Procedure Physician: Paul Birch MD, [facility] Referring MD: Rodriguez Lawrence MD Referring MD: Procedures Performed: LEFT HEART CATH Stent w/ PTCA Single Major Vessel (EMMY LAD) PCI of Acute [place] Indications: Acute [place] - ongoing chest pressure with EKG changes concerning for anterior STEMI Impressions: There is severe one vessel coronary artery disease. Patient had successful PTCA/Drug-Eluting Stent placement in the mid LAD. MICHELLE versus CKD Recommendations: Optimal medical therapy of patient's disease. Aggressive risk factor modification. Transthoracic echo History/Risk Factors: CP Diabetes Hypertension Procedure Access obtained in the right Radial artery by percutaneous puncture Patient had successful PTCA/Drug-Eluting Stent placement in the mid LAD. Complications: None Contrast: Isovue 81ml Closure Device: Manual Compression Hemodynamics: Pressures Site Systolic/ A Wave Diastolic/ V Wave End Diastolic/ Mean HR AO 89 68 78 95 AO 94 74 84 90 AO 77 56 65 90 LV 95 30 34 87 LV 91 22 32 85 AO 0 Coronary Dominance: right Lesion Findings/Interventions * Left Main Coronary Artery The LMCA is angiographically free of disease. * Left Anterior Descending There is a 90% stenosis in the Mid LAD. The lesion has a BALA flow of 2 and has thrombus present. An intervention was performed on the Mid LAD with a final stenosis of 0%. There were no lesion complications. The final BALA flow was 3. There is a mid distal 80-90% stenosis in a small caliber vessel. Patient's symptoms resolved after PCI of the mid LAD lesion. * Circumflex There is a 40% stenosis in the Proximal Circumflex. There is a 60-70% stenosis in the 1st Marginal. * Right Coronary Artery There is a 50% stenosis in the Mid RCA. There is a 80-90% stenosis in the Right PDA. Interventional Device(s) Vessel Segment Type Name Diameter (mm) Length (mm) Mid LAD Balloon Emerge Monorail 2 12 Mid LAD Drug Eluting Stent Synergy 3 16 Updated by Tamiko Guadarrama RT(R) on 12/18/2016 5:46:32 PM Paul Birch MD, FACC electronically signed on 12/21/2016 2:47:22 PM with status of Final
== END 2016-12-19 22:20 | disposition critical access hospital (66) | DRG 247 ==
LOC: ICNU 15:24 → EMEROO 15:24
PROVIDERS: ADMIT Emergency Medicine; ATTEND Emergency Medicine